=== PATIENT | female | born 2000 | race Caucasian/White ===

== ENCOUNTER → 2024-06-02 | Outpatient (CLI) | payer BC ==
[2024-06-03 07:31] LABS: Bacterial Vaginosis PCR Negative (NEGATIVE); Candida glabrata-krusei, PCR NOT DETECTED (NOT DETECT)
[2024-06-03 07:57] LABS: Candida Group, PCR DETECTED (NOT DETECT)
== END ==
LOC: LAB SHORT 17:21
PROVIDERS: Advanced Practice Midwife
DX: N76.0 Acute vaginitis (principal)
CPT/HCPCS: 87481; 87661; 87801

== ENCOUNTER → 2024-10-17 | Outpatient (CLI) | payer BC | LOC: LAB 16:20 → LAB SHORT 16:20 | DX: O09.90 Supervision of high risk pregnancy, unspecified, unspecified trimester (principal) | CPT/HCPCS: 87081; 87150 ==

== ENCOUNTER 2024-11-15 12:06 | Inpatient (IN) | payer BC ==
[2024-11-15] VITALS (57 sets, daily range): BP systolic 118–169; BP diastolic 62–112
[~2024-11-15] VITALS: Ht 180.3 cm; Wt 107.0 kg
[2024-11-15] MEDS ORDERED: OXYTOCIN/RINGER'S LACTATE 500 ML IV SCH ×2 (12:20→21:30)
[2024-11-15] MEDS ORDERED: ePHEDrine Sulfate 50 MG/ML 1ML Injection XX PRN (12:20)
[2024-11-15] MEDS ORDERED: Acetaminophen 500 MG Tab PO PRN ×2 (12:20→21:35)
[2024-11-15] MEDS ORDERED: Misoprostol 200 MCG Tab PR PRN ×2 (12:20→21:30)
[2024-11-15] MEDS ORDERED: Lactated Ringer's 1,000 ML IV SCH ×4 (12:20→21:35)
[2024-11-15] MEDS ORDERED: Oxytocin 10 Unit / ML Vial IM PRN (12:20)
[2024-11-15] MEDS ORDERED: Ondansetron HCl 2 MG / ML 2ML Vial IV PRN ×2 (12:20→17:40)
[2024-11-15] MEDS ORDERED: FentaNYL 2mcg/ml-Bup 0.1% Epd 250 ML EPI PRN (12:20)
[2024-11-15] MEDS ORDERED: Methylergonovine Maleate 0.2MG / ML 1ML Amp IM PRN ×2 (12:20→21:35)
[2024-11-15] MEDS ORDERED: OXYTOCIN/RINGER'S LACTATE 500 ML IV PRN (12:20)
[2024-11-15] MEDS ORDERED: Lactated Ringer's 1,000 ML IV PRN (12:20)
[2024-11-15] MEDS ORDERED: Carboprost Tromethamine 250 MCG/ML 1ML Amp IM PRN ×2 (12:20→21:35)
[2024-11-15] MEDS ORDERED: Misoprostol 200 MCG Tab BC PRN (12:20)
[2024-11-15] MEDS ORDERED: Calcium Carbonate 500 MG Tab Chew PO SCH (12:25)
[2024-11-15] MEDS ORDERED: Tranexamic Acid 100 ML IV SCH (12:30)
[2024-11-15] MEDS ORDERED: FentaNYL Citrate 50 MCG/ML 2 ML Injection ONE (12:50)
[2024-11-15] MEDS ORDERED: FentaNYL Citrate 50 MCG/ML 2 ML Injection IV PRN (12:55)
[2024-11-15] MEDS ORDERED: Misoprostol 25 MCG Tab VAG SCH ×2 (13:26→16:00)
[2024-11-15 13:39] LABS: BASOPHILS ABSOLUTE AUTO 0.07 K/mm3 (0.00-0.23); BASOPHILS PERCENT AUTO 1 % (0-2); EOSINOPHILS ABSOLUTE AUTO 0.36 K/mm3 (0.00-0.68); EOSINOPHILS PERCENT AUTO 4 % (0-6); Hematocrit 35.2 % (33.0-51.0); Hemoglobin 12.4 g/dL (11.5-16.0); IMMATURE GRAN ABSOLUTE AUTO 0.04 K/mm3 (0.00-0.10); IMMATURE GRAN PERCENT AUTO 0 % (0-1); LYMPHOCYTES ABSOLUTE AUTO 1.75 K/mm3 (0.84-5.20); LYMPHOCYTES PERCENT AUTO 17 % (21-46); MONOCYTES ABSOLUTE AUTO 0.86 K/mm3 (0.16-1.47); MONOCYTES PERCENT AUTO 8 % (4-13); Mean Corpuscular HGB 30.3 pg (26.0-34.0); Mean Corpuscular HGB Conc 35.2 g/dL (31.5-36.5); Mean Corpuscular Volume 86 fL (80-100); Mean Platelet Volume 11.4 fL (9.1-12.4); NEUTROPHILS PERCENT AUTO 70 % (41-73); Platelet Count 309 K/mm3 (150-400); RDW Coefficient Variation 12.9 % (11.7-14.2); RDW Standard Deviation 39.8 fL (35.1-46.3); Red Blood Cell Count 4.09 M/mm3 (3.80-5.20); White Blood Cell Count 10.18 K/mm3 (4.00-11.30)
[2024-11-15] MEDS ORDERED: ZYRTEC10 M2 (13:44)
[2024-11-15] MEDS ORDERED: MONT10T PO (13:44)
[2024-11-15] MEDS ORDERED: PRENATAL TABLE1 EAC9 PO (13:44)
[2024-11-15] MEDS ORDERED: ALBU2.5V5 INH (13:44)
[2024-11-15] MEDS ORDERED: BUDESONIDE0.5 MG/25 INH (13:45)
[2024-11-15 14:14] LABS: Albumin, Blood 1.7 g/dL (3.4-5.0); Albumin/Globulin Ratio 0.4 (0.8-1.8); Bilirubin, Total 0.2 mg/dL (0.1-1.0); Bun/Creatinine Ratio 9.2 (12.0-20.0); Calcium, Blood 8.7 mg/dL (8.5-10.1); Creatinine, Blood 0.65 mg/dL (0.40-1.00); Globulin, Blood 4.2 g/dL (2.2-4.0); Total Protein, Blood 5.9 g/dL (6.4-8.2)
[2024-11-15] MEDS ORDERED: Naloxone HCl 0.4MG / ML 1ML Vial IV PRN (17:40)
[2024-11-15] MEDS ORDERED: Metoclopramide HCl 5MG / ML 2ML Vial IV PRN (17:40)
[2024-11-15] MEDS ORDERED: DiphenhydrAMINE HCl 50 MG/ML 1ML Vial IV PRN (17:40)
[2024-11-15] MEDS ORDERED: ePHEDrine Sulfate 50 MG/ML 1ML Injection IV PRN (17:45)
[2024-11-15] MEDS ORDERED: FentaNYL Cit 2 MCG/ML, 0.1% Bupiv/NS 250ML Epidural EPI PRN (17:55)
[2024-11-15] MEDS ORDERED: Lanolin Cream TOP PRN (21:30)
[2024-11-15] MEDS ORDERED: Benzocaine Topical Anesthetic Spray 60GM TOP PRN (21:30)
[2024-11-15] MEDS ORDERED: Oxytocin 10 Unit / ML Vial IM ONE (21:30)
[2024-11-15] MEDS ORDERED: Witch Hazel/Glycerin PADS TOP PRN (21:35)
[2024-11-15] MEDS ORDERED: Docusate Sodium 100 MG Cap PO PRN (21:35)
[2024-11-15] MEDS ORDERED: OxyCODONE HCL 5 MG TAB PO PRN (23:20)
[2024-11-16] MEDS ORDERED: Ketorolac Tromethamine 30mg Vial IV SCH
[2024-11-16 03:10] VITALS: BP 127/72
--- NOTE | 2024-11-16 03:47 | NUR ---
0320- VAGINAL PACKING REMOVED AFTER BEING IN FOR 6 HOURS. VAGINAL AND LABIAL AREAS NOTED TO BE WELL APPROXIMATED WITH MINIMAL SWELLING. PATIENT TOLERATED THE REMOVAL PROCEDURE WELL.
[2024-11-16] MEDS ORDERED: Ibuprofen 400 MG Tab PO PRN (06:00)
[2024-11-16 06:44] LABS: BASOPHILS ABSOLUTE AUTO 0.06 K/mm3 (0.00-0.23); BASOPHILS PERCENT AUTO 0 % (0-2); EOSINOPHILS ABSOLUTE AUTO 0.04 K/mm3 (0.00-0.68); EOSINOPHILS PERCENT AUTO 0 % (0-6); Hematocrit 31.3 % (33.0-51.0); Hemoglobin 10.9 g/dL (11.5-16.0); IMMATURE GRAN PERCENT AUTO 1 % (0-1); LYMPHOCYTES PERCENT AUTO 11 % (21-46); MONOCYTES ABSOLUTE AUTO 1.48 K/mm3 (0.16-1.47); MONOCYTES PERCENT AUTO 9 % (4-13); Mean Corpuscular HGB 30.3 pg (26.0-34.0); Mean Corpuscular HGB Conc 34.8 g/dL (31.5-36.5); Mean Corpuscular Volume 87 fL (80-100); Mean Platelet Volume 11.1 fL (9.1-12.4); NEUTROPHILS PERCENT AUTO 80 % (41-73); Platelet Count 273 K/mm3 (150-400); RDW Standard Deviation 40.3 fL (35.1-46.3); White Blood Cell Count 16.98 K/mm3 (4.00-11.30)
[2024-11-16 08:02] VITALS: BP 135/83
[2024-11-16] MEDS ORDERED: Prenatal Vit/FE Fumarate/FA 1 Tab PO SCH (09:00)
--- NOTE | 2024-11-16 11:09 | NUR ---
Spiritual Care Visit. 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 Both Pt. and spouse welcome my visit. Facilitated an update regarding delivery of their little girl. COnsidered matters of jai, family yand significant relationships. Pryaed a blessing over the baby and her parents. Pt. and spouse verbalize gratitude for the spiritual care visit.
[2024-11-16 16:37] VITALS: BP 144/86
--- NOTE | 2024-11-16 17:49 | NUR ---
ASSUMED CARE AT 1620
[2024-11-16] MEDS ORDERED: ACET500 PO (18:58)
[2024-11-16] MEDS ORDERED: OXAYDO5 M1 PO (18:58)
[2024-11-16 20:01] VITALS: BP 137/81
--- NOTE | 2024-11-16 21:53 | NUR ---
RN WENT OVER DISCHARGE INSTRUCTIONS. PT HAD NO QUESTIONS OR CONCERNS AT THIS TIME. BANDS WERE MATCHED WITH MOB AND PAPERWORK WAS SENT HOME WITH THEM. RN WALKED OUT WITH PARENTS CARRYING BABY IN CARSEAT AND WATCHED FOB PLACED IN CAR.
== END 2024-11-16 21:55 | disposition home or self-care (01) | DRG 768 ==
LOC: OBS 12:06 → BC 12:10 → OBS 12:23 → BC 12:24
PROVIDERS: ADMIT Advanced Practice Midwife
PROC: 10E0XZZ Delivery of Products of Conception, External Approach (ICD-10-PCS; principal; 2024-11-15)
PROC: 0DQR0ZZ Repair Anal Sphincter, Open Approach (ICD-10-PCS; 2024-11-15)
DX: O14.94 Unspecified pre-eclampsia, complicating childbirth (principal); Z37.0 Single live birth; O99.12 Other diseases of the blood and blood-forming organs and certain disorders involving the immune mechanism complicating childbirth; D68.51 Activated protein C resistance; Z3A.40 40 weeks gestation of pregnancy; O48.0 Post-term pregnancy; J45.909 Unspecified asthma, uncomplicated; O70.21 Third degree perineal laceration during delivery, IIIa; O99.52 Diseases of the respiratory system complicating childbirth; Z91.018 Allergy to other foods; Z91.09 Other allergy status, other than to drugs and biological substances; Z98.890 Other specified postprocedural states; Z87.19 Personal history of other diseases of the digestive system; Z88.8 Allergy status to other drugs, medicaments and biological substances; Z79.51 Long term (current) use of inhaled steroids; Z79.899 Other long term (current) drug therapy
CPT/HCPCS: 36415; 51701; 51702; 80053; 85025; 86850; 86900; 86901; 86923; A9270; J2590; J3010; J7120

== ENCOUNTER → 2025-02-07 | Outpatient (CLI) | payer BC ==
[~2025-02-07] MED LIST: ACET500 PO; ALBU2.5V5 INH; BUDESONIDE0.5 MG/25 INH; MONT10T PO; OXAYDO5 M1 PO; PRENATAL TABLE1 EAC9 PO; ZYRTEC10 M2
[2025-02-07 19:00] LABS: Bacterial Vaginosis PCR Negative (NEGATIVE); Candida Group, PCR NOT DETECTED (NOT DETECT); Candida glabrata-krusei, PCR NOT DETECTED (NOT DETECT)
== END | disposition home or self-care (01) ==
LOC: LAB SHORT 15:56 → LAB 15:56
PROVIDERS: Advanced Practice Midwife
DX: N76.0 Acute vaginitis (principal)
CPT/HCPCS: 81515

== ENCOUNTER 2025-03-07 08:31 | Day surgery (SDC) | payer BC ==
[~2025-03-07] VITALS: Ht 180.3 cm; Wt 88.2 kg
[~2025-03-07 08:31] MED LIST changes: +EPINEPhrine HCl 1 MG / ML 30ML Vial ONE; +Lidocaine 1%-Epineph 1:200000 30 ML SDV ONE
[2025-03-07] MEDS ORDERED: SYMBICORT 160-4.6 GM (09:10)
[2025-03-07] MEDS ORDERED: Prednisone10 MG (09:11)
[2025-03-07] MEDS ORDERED: AMOCLA500 (09:11)
[2025-03-07] MEDS ORDERED: Tranexamic Acid 100 ML IV ONE (09:44)
[2025-03-07] MEDS ORDERED: Midazolam HCl 1MG / ML 2ML Vial ONE (09:48)
[2025-03-07] MEDS ORDERED: FentaNYL Citrate 50 MCG/ML 2 ML Injection ONE ×3 (09:48→12:47)
[2025-03-07] MEDS ORDERED: Rocuronium Bromide 10 MG/ML 5ML Injection IV ONE (10:19)
[2025-03-07] MEDS ORDERED: Dexamethasone Sod Phos 10 MG/ML 1ML VIAL ONE (10:19)
[2025-03-07] MEDS ORDERED: Ondansetron HCl 2 MG / ML 2ML Vial ONE (10:19)
[2025-03-07] MEDS ORDERED: Sugammadex Sodium 200 MG/2ML SDV (100 MG/ML) ONE ×2 (10:53→11:30)
[2025-03-07 12:43] VITALS: BP 139/81
[2025-03-07] MEDS ORDERED: OxyCODONE 5 mg/Acetamin 325 mg TABLET ONE (12:48)
--- NOTE | 2025-03-07 12:55 | NUR ---
03/07/25 Ernst Murphy FENTANYL 12.5MCG IV GIVEN AT 1255 FOR 6/10 FACIAL PAIN
== END 2025-03-07 13:47 | disposition home or self-care (01) ==
LOC: ORSCSDS 08:31
PROVIDERS: Otolaryngology
PROC: 0NB Head and Facial Bones, Excision (ICD-10-PCS; principal; 2025-03-07 10:00)
DX: J32.4 Chronic pansinusitis (principal); J33.9 Nasal polyp, unspecified; J45.909 Unspecified asthma, uncomplicated; Z87.891 Personal history of nicotine dependence; D68.51 Activated protein C resistance; Z79.899 Other long term (current) drug therapy
CPT/HCPCS: 88305; 88311; 88312; A9270; C2625; J0165; J1100; J2250; J2405; J2704; J3010; J7120